=== PATIENT | male | born 1950 | race Caucasian/White ===

== ENCOUNTER → 2023-09-12 | Day surgery (SDC) | payer OTHER ==
[2023-09-11 12:15] VITALS: BMI 28.8
[~2023-09-12] MED LIST: ACETAMINOPHEN 325 MG TABLET (FP) PO PRN; BSS (NA/CA/MG/K) BALANCED SALT SOLUTION OPHTH SOLN 15 ML BOTTLE ONE; BUPIVACAINE HCL/PF 0.75% 10 ML VIAL ONE; CHONDROITIN SU A/HYALUR SOD 1 KIT ONE; CYCLOPENTOLATE HCL 1% OPHTH SOLN 2 ML BOTTLE ONE; CYCLOPENTOLATE HCL 1% OPHTH SOLN 2 ML BOTTLE OP SCH; KETOROLAC TROMETHAMINE 0.5% EYE DROP 1 DROP DROPS ONE; KETOROLAC TROMETHAMINE 0.5% EYE DROP 1 DROP DROPS OP SCH; LIDOCAINE HCL 2% 100 MG/5 ML DISP.SYRIN ONE; LIDOCAINE HCL/PF 1% SDV 5ML VIAL ONE; LIDOCAINE HCL/PF 2% SDV 5ML VIAL ONE; OFLOXACIN 0.3% OPHTHALMIC SOLUTION 5 ML BOTTLE ONE; OFLOXACIN 0.3% OPHTHALMIC SOLUTION 5 ML BOTTLE OP SCH; ONDANSETRON 4 MG/2 ML VIAL ONE; PHENYLEPHRINE 2.5% OPHTH SOLN 15 ML BOTTLE OP SCH; PHENYLEPHRINE 2.5% OPTHALMIC DROP 2ML BOTTLE ONE; PHENYLEPHRINE/KETOROLAC 4 ML VIAL IO ONE; POVIDONE-IODINE 5% OPHTHALMIC PREP 30 ML SOLUTION ONE; PROPOFOL 20 ML ONE; TROPICAMIDE 1% OPHTH SOLN 15 ML BOTTLE ONE; TROPICAMIDE 1% OPHTH SOLN 15 ML BOTTLE OP SCH; TRYPAN BLUE 0.5 ML DISP.SYRIN ONE
[2023-09-12 08:16] VITALS: RESP 18
[2023-09-12] MEDS: KETOROLAC TROMETHAMINE 0.5% EYE DROP 1 DROP DROPS OP SCH (09:07)
[2023-09-12] MEDS: CYCLOPENTOLATE HCL 1% OPHTH SOLN 2 ML BOTTLE OP SCH (09:07)
[2023-09-12] MEDS: TROPICAMIDE 1% OPHTH SOLN 15 ML BOTTLE OP SCH (09:08)
[2023-09-12] MEDS: PHENYLEPHRINE 2.5% OPHTH SOLN 15 ML BOTTLE OP SCH (09:08)
[2023-09-12] MEDS: OFLOXACIN 0.3% OPHTHALMIC SOLUTION 5 ML BOTTLE OP SCH (09:09)
[2023-09-12] MEDS: BUPIVACAINE HCL/PF 0.75% 10 ML VIAL RB ONE (11:08)
[2023-09-12] MEDS: LIDOCAINE HCL/PF 2% SDV 5ML VIAL INF ONE (11:08)
[2023-09-12] MEDS: POVIDONE-IODINE 5% OPHTHALMIC PREP 30 ML SOLUTION OS ONE (11:10)
[2023-09-12] MEDS: BSS (NA/CA/MG/K) BALANCED SALT SOLUTION OPHTH SOLN 15 ML BOTTLE OS ONE (11:20)
[2023-09-12] MEDS: LIDOCAINE HCL 1% PRESERVATIVE FREE - 30ML VIAL IO ONE (11:22)
[2023-09-12] MEDS: CHONDROITIN SU A/HYALUR SOD 1 KIT IO ONE (11:24)
[2023-09-12] MEDS: PHENYLEPHRINE/KETOROLAC 4 ML VIAL IO ONE (11:29)
[2023-09-12 13:29] VITALS: TEMP 97.8
[2023-09-12 13:30] VITALS: BP 130/59; PULSE 49
== END | disposition home or self-care (01) ==
LOC: JASU-SURG 04:37
PROVIDERS: ATTEND Ophthalmology
PROC: 08RJ3JZ Replacement of Right Lens with Synthetic Substitute, Percutaneous Approach (ICD-10-PCS; principal; 2023-09-12 11:00)
DX: H26.9 Unspecified cataract (principal)
CPT/HCPCS: J1097; V2632